=== PATIENT | male | born 1950 | race African-American/Black ===

== ENCOUNTER 2022-07-06 11:22 | Emergency (ER) | payer BC, MEDICAID ==
[~2022-07-06] VITALS: Ht 170.2 cm; Wt 59.0 kg
[2022-07-06] MEDS ORDERED: SODIUM CHLORIDE 0.9% 1,000 ML IV ONE (12:15)
[2022-07-06] MEDS ORDERED: MORPHINE SULFATE 4 MG/ML CPJ (NOT FOR IM USE) IV ONE (12:15)
[2022-07-06 12:59] LABS: HEMATOCRIT 33.1 % (42.0-52.0); HEMOGLOBIN 10.6 g/dL (14.0-18.0); MEAN CORPUSCULAR HEMOGLOBIN 25.2 pg (28.0-32.0); MEAN CORPUSCULAR VOLUME 78.5 fL (80.0-94.0); PLATELET 524 x1000/uL (130-400); RED BLOOD CELL COUNT 4.22 mill/uL (4.7-6.1); RED CELL DISTRIBUTION WIDTH 18.3 % (11.6-14.6)
[2022-07-06 13:06] LABS: CHLORIDE 101 mEq/L (98-107)
[2022-07-06] MEDS ORDERED: KETOROLAC 30MG/ML VIAL IV ONE (14:00)
[2022-07-06] MEDS ORDERED: HYDROMORPHONE HCL/PF 2MG/ML CPJ IV ONE (15:30)
[2022-07-06 19:06] VITALS: BP 124/76
== END 2022-07-06 19:13 | disposition short-term general hospital (02) ==
LOC: ER 11:22 → CANBEDREQ 18:34 → ER 19:13
DX: M25.552 Pain in left hip (principal); R26.2 Difficulty in walking, not elsewhere classified
CPT/HCPCS: 36415; 73502; 80048; 85027; 96361; 96374; 96375; 99284; J1170; J1885; J2270; J7030